=== PATIENT | female | born 1990 | race African-American/Black ===

== ENCOUNTER 2023-06-13 18:17 | Emergency (ER) | payer OTHER ==
[2023-06-13 18:42] VITALS: BP 134/92; PULSE 80; RESP 16; TEMP 98; BMI 25.7
[2023-06-13] MEDS ORDERED: PENICILLIN G BENZATHINE 2,400,000 UNIT/4 ML PFS IM ONE (18:54)
[2023-06-13] MEDS ORDERED: AZITHROMYCIN 500 MG TABLET PO ONE (18:55)
[2023-06-13] MEDS ORDERED: PENICILLIN G BENZATHINE 1,200,000 UNIT/2 ML PFS IM ONE (19:03)
== END 2023-06-13 19:24 | disposition home or self-care (01) ==
LOC: FER 18:17
DX: Z20.2 Contact with and (suspected) exposure to infections with a predominantly sexual mode of transmission (principal)
CPT/HCPCS: 36415; 81025; 86780; 87491; 87591; 87661; 99284-25

== ENCOUNTER 2024-07-19 05:56 | Day surgery (SDC) | payer OTHER ==
[2024-07-15 16:44] VITALS: BMI 25.0
[2024-07-19] MEDS ORDERED: MIDAZOLAM HCL 2 MG/2 ML SINGLE DOSE VIAL ONE (07:15)
[2024-07-19] MEDS ORDERED: PROPOFOL 20 ML ONE (07:15)
[2024-07-19] MEDS ORDERED: ONDANSETRON 4 MG/2 ML VIAL ONE (07:22)
[2024-07-19] MEDS ORDERED: LIDOCAINE HCL/PF 2% SDV 5ML VIAL ONE (07:23)
[2024-07-19] MEDS ORDERED: ROCURONIUM BROMIDE 50 MG/5 ML VIAL ONE (07:23)
[2024-07-19] MEDS ORDERED: ONDANSETRON 4 MG/2 ML VIAL IVPUSH PRN (07:37)
[2024-07-19] MEDS ORDERED: oxyCODONE HCL 5 MG TABLET PO PRN (07:37)
[2024-07-19] MEDS ORDERED: LIDOCAINE HCL 1%, 10 MG/ML (20ML VIAL) ONE (07:53)
[2024-07-19] MEDS ORDERED: BUPIVACAINE HCL/PF 0.5% (5MG/ML) 10 ML VIAL ONE (07:54)
[2024-07-19] MEDS ORDERED: IBUPROFEN 600 MG TABLET (FP) PO PRN (08:12)
[2024-07-19] MEDS ORDERED: IBUPROFEN 800 MG/8 ML IJ IVPB PRN (08:12)
[2024-07-19] MEDS ORDERED: ACETAMINOPHEN 325 MG TABLET (FP) PO PRN (08:12)
[2024-07-19] MEDS ORDERED: ceFAZolin SODIUM 1 GM VIAL ONE (08:25)
[2024-07-19] MEDS ORDERED: DEXAMETHASONE SOD PHOSPHATE 4 MG/1 ML VIAL ONE (08:26)
[2024-07-19] MEDS: ceFAZolin SODIUM 1 GM VIAL IVPB ONE (08:27)
[2024-07-19] MEDS ORDERED: SUGAMMADEX SODIUM 200 MG/2 ML VIAL ONE (08:59)
[2024-07-19] MEDS ORDERED: BUPIVACAINE HCL/PF 0.25% (2.5MG/ML) 10 ML VIAL ONE (09:00)
[2024-07-19] MEDS: BUPIVACAINE HCL/PF 0.25% (2.5MG/ML) 10 ML VIAL IJ ONE (09:00)
[2024-07-19] MEDS ORDERED: KETOROLAC TROMETHAMINE 30 MG/1 ML VIAL ONE (09:00)
[2024-07-19] MEDS ORDERED: ACETAMINOPHEN INJECTION 100 ML ONE (09:32)
[2024-07-19] MEDS: ACETAMINOPHEN 1000 MG/100 ML BAG IVPB ONE (09:33)
[2024-07-19] MEDS: LACTATED RINGERS SOLUTION 1,000 ML IV SCH (09:36)
[2024-07-19 10:38] VITALS: RESP 18
[2024-07-19 11:25] VITALS: BP 106/68; PULSE 70; TEMP 98
== END 2024-07-19 11:55 | disposition home or self-care (01) ==
LOC: JASU-SURG 05:56
PROVIDERS: ATTEND Obstetrics & Gynecology
PROC: 0UB74ZZ Excision of Bilateral Fallopian Tubes, Percutaneous Endoscopic Approach (ICD-10-PCS; principal; 2024-07-19 08:00)
DX: Z30.2 Encounter for sterilization (principal)
CPT/HCPCS: 81025; 88305-TC; 94760; J0131